=== PATIENT | male | born 1950 | race African-American/Black ===

== ENCOUNTER 2021-08-17 15:43 | Emergency (ER) | payer MEDICAID, OTHER ==
[~2021-08-17] VITALS: Ht 182.9 cm; Wt 91.0 kg
[2021-08-17 15:52] VITALS: BP 136/73
[2021-08-17] MEDS ORDERED: PSYL0.4C2 PO (15:58)
== END 2021-08-17 18:56 | disposition left against medical advice (07) ==
LOC: ER 15:43
DX: R10.30 Lower abdominal pain, unspecified (principal); Z53.21 Procedure and treatment not carried out due to patient leaving prior to being seen by health care provider